=== PATIENT | male | born 2000 | race Caucasian/White ===

== ENCOUNTER 2019-07-24 18:44 | Emergency (ER) | payer OTHER ==
[~2019-07-24] VITALS: Ht 180.3 cm; Wt 64.9 kg
[2019-07-24 18:47] VITALS: Ht 180.3 cm; Wt 64.9 kg
[2019-07-24 21:53] VITALS: BP 110/63
== END 2019-07-24 21:53 | disposition home or self-care (01) ==
LOC: ED 18:44
DX: S62.012A Displaced fracture of distal pole of navicular [scaphoid] bone of left wrist, initial encounter for closed fracture (principal); Z88.0 Allergy status to penicillin; V00.131A Fall from skateboard, initial encounter; Y93.51 Activity, roller skating (inline) and skateboarding; Y92.331 Roller skating rink as the place of occurrence of the external cause; Y99.8 Other external cause status